=== PATIENT | female | born 1970 | race Two or more races ===

== ENCOUNTER 2024-03-05 06:43 | Emergency (ER) | payer OTHER, MEDICAID ==
[~2024-03-05] VITALS: Ht 165.1 cm; Wt 92.6 kg
--- NOTE | 2024-03-05 07:31 | ED.PDOC ---
General HPI Comments A 53 YEAR OLD FEMALE PRESENTS TO THE ED WITH COMPLAINT OF UTI SYMPTOMS. PATIENT STATES SHE HAS BEEN EXPERIENCING PAINFUL URINATION, URINARY FREQUENCY, SMALL URINE OUTPUT, AND SUPRAPUBIC PRESSURE FOR THE PAST 2 DAYS. PATIENT DENIES HEMATURIA, FEVER, CHILLS, SHORTNESS OF BREATH, CHEST PAIN, ABDOMINAL PAIN, NAUSEA, VOMITING, HEADACHE, OR OTHER COMPLAINTS. NO OTHER SYMPTOMS OR MODIFYING FACTORS AT THIS TIME. PATIENT IS ALERT, ORIENTED X 4, AND HAS STEADY GAIT. Chief Complaint: Urinary Time Seen by MD: 07:01 Reviewed notes: Nurses Notes, Medications, Allergies Allergies: Coded Allergies: NO KNOWN ALLERGIES (Unverified , 03/05/24) Information Source: Patient Mode of Arrival: Ambulatory Severity: Moderate Inability to void: None Timing: Days Duration: Since onset, Days Prehospital treatment: None Onset: Spontaneous Symptoms: Dysuria, Frequency, Other (SUPRAPUBIC PRESSURE) History of: UTI Location: Suprapubic Modifying factors: None associated signs and symptoms: Dysuria, Frequency, Urgency Past Medical History PAST MEDICAL HISTORY: UTI'S Surgical History: Denies all surgeries ELECTRONIC COURT RECORDER History: No 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 History Family History Family History: Reviewed,noncontributory to illness Social History Smoker: Non-Smoker Alcohol: Denies ETOH Use Drugs: Denies Drug Use Lives In: Home Constitutional: denies: chills, diaphoresis, fatigue, fever, malaise, sweats, weakness, others EENTM: denies: blurred vision, double vision, ear bleeding, ear discharge, ear drainage, ear pain, ear ringing, eye pain, eye redness, hearing loss, mouth pain, mouth swelling, nasal discharge, nose bleeding, nose congestion, nose pain, photophobia, tearing, throat pain, throat swelling, voice changes, others Respiratory: denies: cough, hemoptysis, orthopnea, SOB at rest, shortness of breath, SOB with excertion, stridor, wheezing, others Cardiovascular: denies: chest pain, dizzy spells, diaphoresis, Dyspnea on exertion, edema, irregular heart beat, left arm pain, lightheadedness, p alpitations, PND, syncope, others Gastrointestinal: denies: abdomen distended, abdominal pain, blood streaked bowels, constipated, diarrhea, dysphagia, difficulty swallowing, hematemesis, melena, nausea, poor appetite, poor fluid intake, rectal bleeding, rectal pain, vomiting, others Genitourinary: reports: burning, dysuria, frequency, pain (SUPRAPUBIC PRESSURE); denies: abnormal vagina bleeding, dyspareunia, flank pain, hematuria, incontinence, , vagina discharge, urgency, others Neurological: denies: dizziness, fainting, headache, left sided numbness, left sided weakness, numbness, paresthesia, pre-existing deficit, right sided numbness, right sided weakness, seizure, speech problems, tingling, tremors, weakness, others Musculoskeletal: denies: back pain, gout, joint pain, joint swelling, muscle pain, muscle stiffness, neck pain, others Integumetry: denies: bruises, change in color, change in hair/nails, dryness, laceration, lesions, lumps, rash, wounds, others Allergic/Immunocompromised: denies: Difficulty Healing, Frequent Infections, H elizabeth, Itching, others Hematologic/Lymphatic: denies: anemia, blood clots, easy bleeding, easy bruising, swollen glands, others Endocrine: denies: excessive hunger, excessive sweating, excessive thirst, excessive urination, flushing, intolerance to cold, intolerance to heat, unexplained weight gain, unexplained weight loss, others Psychiatric: denies: anxiety, bipolar disorder, depression, hopeless, panic disorder, schizophrenia, sleepless, suicidal, others All Other Systems: Reviewed and Negative Physical Exam General Appearance: No Apparent Distress, Obese HEENT: Normal ENT Inspection, PERRL/EOMI, Pharynx Normal, TMs Normal Neck: Full Range of Motion, Non-Tender, Normal, Normal Inspection Respiratory: Chest Non-Tender, Lungs Clear, No Accessory Muscle Use, No Respiratory Distress, Normal Breath Sounds Cardiovascular: No Edema, No JVD, No Murmur, No Gallop, Normal Peripheral Pulses, Regular Rate/Rhythm Breast Exam: Deferred Gastrointestinal: No Organomegaly, No Pulsatile Mass, Normal Bowel Sounds, Soft, Suprapubic (PRESSURE, NO GUARDING AND REBOUND TENDERNESS. ) Genitalia: Deferred Pelvic: Normal External Exam, Tender Uterus Rectal: Deferred Extremities: No calf tenderness, Normal capillary refill, Normal inspection, Normal range of motion, Non-tender, No pedal edema Musculoskeletal : Apperance: Normal Neurologic: Alert, overlock operator II-XII nml as Tested, No Motor Deficits, Normal Affect, Normal Mood, No Sensory Deficits Cerebellar Function: Normal Reflexes: Normal Skin: Dry, Normal Color, Warm Peripheral Pulses: 2+ carotid (R), 2+ carotid (L) Lymphatic: No Adenopathy Was a procedure done? Was a procedure done?: No Differential Diagnosis Kidney stone (Female): N/A Kidney stone (Male): N/A Penile/Scrotal: N/A Urinary Problem (Male): N/A Urinary Problem (Female): Pyelonephritis, Urolithiasis, UTI, Vaginitis X-Ray, Labs, Meds, VS Vital Signs Date Time Temp Pulse Resp B/P (MAP) Pulse Ox O2 Delivery O2 Flow Rate FiO2 03/05/24 07:38 78 17 97 Room Air 03/05/24 07:38 97.9 78 17 139/63 (88) 97 97.9 03/05/24 06:55 97.9 78 17 139/63 (88) 97 Lab Test 03/05/24 06:40 Range/Units Urine Color Dark-brown Yellow Urine Clarity Ex.turbid Clear Urine pH 5.0 5.0-9.0 Urine Specific [place] 1.026 1.001-1.035 Urine Protein 1+ H Negative Urine Ketones Negative Negative Urine Blood 2+ H Negative /uL Urine Nitrite Negative Negative Urine Bilirubin Negative Negative Urine Urobilinogen Normal Negative mg/dL Urine Leukocyte Esterase Negative Negative /uL Urine RBC None seen 0 - 4 /hpf Urine WBC 207 0 - 5 /hpf Urine WBC Clumps Present None Seen /hpf Urine Squamous Epithelial Cells Few <5 /hpf Urine Amorphous Crystals Few None Seen /hpf Urine Bacteria None seen None Seen /hpf Urine Glucose Normal Normal mg/dL Current Medications Medications (Trade) Dose Ordered Sig/Pal Route Start Time Stop Time Status Last Admin Phenazopyridine HCl (Pyridium Tablet) 200 mg ONCE ONCE PO 03/05/24 08:30 03/05/24 08:31 03/05/24 08:25 X-Ray, Labs, Meds, VS Comment EXTERNAL MEDICAL RECORDS REVIEWED: [NONE] INDEPENDENT HISTORIANS: [NONE] SOCIAL DETERMINANTS OF HEALTH: [NONE] LABS ORDERED: UA REVIEWED AND INTERPRETED RESULTS: BLOOD 2+, WBC CLUMPS PRESENT IMAGING ORDERED: NONE TREATMENTS ORDERED: PYRIDIUM 200 MG P.O. PROCEDURES PERFORMED: NONE CRITICAL CARE TIME: NONE I HAVE DISCUSSED THE PATIENT WITH THE ATTENDING PHYSICIAN DR. ACEVEDO AND HE AGREES WITH THE PATIENT'S PLAN OF CARE AND DISPOSITION. BASED ON HISTORY OF PRESENT ILLNESS, AND PHYSICAL EXAM, PATIENT WILL BE DISCHARGED HOME. DISCUSSED PLAN FOR DISCHARGE HOME WITH RX [[facility]]. MEDICATION WARNINGS GIVEN. SHARED DECISION MAKING: PATIENT INSTRUCTED TO FOLLOW UP WITH PRIMARY CARE PROVIDER IN 1-2 DAYS FOR RE-EVALUATION OF SYMPTOMS. PATIENT VERBALIZES UNDERSTANDING TO RETURN TO ED FOR NEW OR WORSENING SYMPTOMS OR IF FOLLOW UP WITH PCP CANNOT BE OBTAINED. PATIENT FEELS COMFORTABLE GOING HOME AT THIS TIME. ALL QUESTIONS ADDRESSED AT TIME OF DISCHARGE. Time of 1ST Reevaluation: 08:30 Reevaluation 1ST: Improved Patient Education/Counseling: Diagnosis, Treatment, Need For Follow Up Family Education/Counseling: Diagnosis, Treatment, Need For Follow Up Medical Screening: No EMC Exist At This Time Departure 1 Departure Time of Disposition: 08:30 Impression: Primary Impression: Acute cystitis Qualified Codes: N30.00 - Acute cystitis without hematuria Disposition: HOME / SELF CARE / HOMELESS Condition: Stable Additional Instructions: FOLLOW-UP WITH PCP IN 1 TO 2 DAYS. TAKE MEDICATIONS PRESCRIBED. RETURN TO ED FOR ANY NEW OR WORSENING SYMPTOMS. e-Prescriptions Phenazopyridine HCl (Phenazopyridine Hydrochlo) 200 Mg Tab 200 MG PO TID, #6 TAB Prov: VINAY PRECIADO 03/05/24 Sulfamethoxazole W/Trimethopri (Bactrim Ds Tablet) 1 Tab Tb 1 TAB PO BID for 7 Days, #14 TAB Prov: VINAY PRECIADO 03/05/24 Discharged With: Self Critical Care Note Critical Care Time?: No Stability Stability form required: No I personally scribed for VINAY PRECIADO ([email or web address]) on 03/05/24 at 07:30. Electronically submitted by Karl Lam ([email or web address]). I personally scribed for VINAY PRECIADO ([email or web address]) on 03/05/24 at 08:29. Electronically submitted by Karl Lam ([email or web address]). VINAY PRECIADO Mar 05, 2024 07:30
[2024-03-05 07:38] VITALS: BP 139/63; PULSE 78; RESP 17; TEMP 97.9; O2SAT 97
[2024-03-05 07:55] LABS: Urine Bacteria None Seen /hpf (None Seen)
[2024-03-05 08:20] LABS: Urine Amorphous Crystal FEW /hpf (None Seen); Urine Blood 2+ /uL (Negative); Urine Clarity Ex.Turbid (Clear); Urine Color Dark-Brown (Yellow); Urine Protein, UAD 1+ (Negative); Urine Specific Gravity 1.026 (1.001-1.035); Urine Squamous Epithelial Cell FEW /hpf (<5); Urine Urobilinogen Normal (Negative); Urine WBC 207 /hpf (0 - 5); Urine WBC Clumps PRESENT /hpf (None Seen)
[2024-03-05] MEDS: PHENAZOPYRIDINE HCL 100 MG TAB PO ONE (08:25)
[2024-03-05] MEDS ORDERED: BACDST PO (08:31)
[2024-03-05] MEDS ORDERED: PHEN-922 PO (08:31)
== END 2024-03-05 08:31 | disposition home or self-care (01) ==
LOC: ER 06:43
DX: N30.00 Acute cystitis without hematuria (principal)
CPT/HCPCS: 81001

== ENCOUNTER → 2024-04-23 | Outpatient (CLI) | payer OTHER, MEDICAID ==
[~2024-04-23] MED LIST: BACDST PO; PHEN-922 PO
== END | disposition home or self-care (01) ==
LOC: LAB 13:53
PROVIDERS: ATTEND Family Medicine
DX: Z00.01 Encounter for general adult medical examination with abnormal findings (principal); Z12.11 Encounter for screening for malignant neoplasm of colon
CPT/HCPCS: 82270

== ENCOUNTER 2025-01-20 10:50 | Outpatient (CLI) | payer OTHER, MEDICAID ==
[2025-01-20 11:38] LABS: Alanine Aminotransferase 39 U/L (7-40); Albumin 4.3 g/dL (3.2-4.8); Alkaline Phosphatase 104 U/L (46-116); Anion Gap 9 (5-15); BUN/Creatinine Ratio 17.0 (10.0-20.0); Bilirubin, Total 0.5 mg/dL (0.2-1.0); Blood Urea Nitrogen 16 mg/dL (9-23); Calcium 9.6 mg/dL (8.7-10.4); Carbon Dioxide 28 mmol/L (20-31); Chloride 106 mmol/L (98-107); HDL Cholesterol 50 mg/dL (40-59); Potassium 3.8 mmol/L (3.5-5.1); Sodium 143 mmol/L (136-145); Total Protein 7.6 g/dL (5.7-8.2); Triglycerides 84 mg/dL (< 150)
[2025-01-20 11:39] LABS: Cholesterol 227 mg/dL (< 200); Glucose 126 mg/dL (74-106)
== END 2025-01-20 17:00 | disposition home or self-care (01) ==
LOC: LAB 10:50
PROVIDERS: ATTEND Family Medicine
DX: N18.2 Chronic kidney disease, stage 2 (mild) (principal); E78.5 Hyperlipidemia, unspecified; E87.8 Other disorders of electrolyte and fluid balance, not elsewhere classified; E66.09 Other obesity due to excess calories
CPT/HCPCS: 36415; 80053; 80061; 82043; 83036